=== PATIENT | female | born 1950 | race Caucasian/White ===

== ENCOUNTER → 2016-10-26 | Outpatient (CLI) | payer OTHER ==
[~2016-10-26] MED LIST: ASPI325T PO; HYDR-2768 PO; LISI-357 PO; LORTA5 PO; METF-324 PO; NORE1TAB60 PO; OMPR20CCR PO; PAXI20TA26 PO; PRED20 PO; SIMV20 PO; Z.0.COMMODE-3:1; Z.0.WALKERFRONT
[2016-10-26 14:00] LABS: ANION GAP 9 MEQ/L (5-15); AST (GOT) 31 U/L (15-37); BICARBONATE 28.1 MEQ/L (21.0-32.0); BLOOD UREA NITROGEN 18 MG/DL (7-18); CHLORIDE 102 MEQ/L (98-107); GLOMERULAR FILTRATION RATE 37 ML/MIN (>89); GLUCOSE,FASTING 112 MG/DL (74-99); HDL CHOLESTEROL 67.3 MG/DL (40.0-60.0); LDL CHOLESTEROL 100 MG/DL (0-99); POTASSIUM 3.7 MEQ/L (3.5-5.1); SODIUM (NA) 139 MEQ/L (136-145)
[2016-10-26 14:23] LABS: HEMOGLOBIN A1a 1.3 %; HEMOGLOBIN A1b 2.3 %; HEMOGLOBIN Ao 82.4 %; HEMOGLOBIN LA1C 2.4 %; HEMOGLOBIN P3 4.2 %
== END ==
LOC: CLAB 12:54
PROVIDERS: ATTEND Family Medicine
DX: N28.9 Disorder of kidney and ureter, unspecified (principal); I10 Essential (primary) hypertension; E78.5 Hyperlipidemia, unspecified; E10.9 Type 1 diabetes mellitus without complications
CPT/HCPCS: 36415; 80048; 80061; 82607; 82746; 83036; 84450

== ENCOUNTER → 2017-02-01 | Outpatient (CLI) | payer OTHER ==
[2017-02-01 13:12] LABS: MICRO ALBUMIN RANDOM URINE RAW 8.6 MG/L (0.0-30.0)
[2017-02-01 13:32] LABS: ANION GAP 10 MEQ/L (5-15); BICARBONATE 27.1 MEQ/L (21.0-32.0); BLOOD UREA NITROGEN 14 MG/DL (7-18); CHLORIDE 102 MEQ/L (98-107); GLOMERULAR FILTRATION RATE 44 ML/MIN (>89); GLUCOSE,FASTING 111 MG/DL (74-99); POTASSIUM 3.6 MEQ/L (3.5-5.1); SODIUM (NA) 139 MEQ/L (136-145)
[2017-02-01 13:59] LABS: HDL CHOLESTEROL 63.1 MG/DL (40.0-60.0); LDL CHOLESTEROL 101 MG/DL (0-99)
[2017-02-01 16:20] LABS: HEMOGLOBIN A1a 1.1 %; HEMOGLOBIN Ao 83.1 %; HEMOGLOBIN LA1C 2.3 %; HEMOGLOBIN P3 4.1 %
== END ==
LOC: CLAB 12:24
PROVIDERS: ATTEND Family Medicine
DX: N28.9 Disorder of kidney and ureter, unspecified (principal); I10 Essential (primary) hypertension; E11.9 Type 2 diabetes mellitus without complications; E53.8 Deficiency of other specified B group vitamins
CPT/HCPCS: 36415; 80048; 80061; 82043; 82607; 82746; 83036

== ENCOUNTER → 2017-06-07 | Outpatient (CLI) | payer OTHER ==
[2017-06-07 11:44] LABS: AUTOMATED NEUTROPHIL # 4.1 TH/MM3 (1.8-7.7); BASOPHIL % 0.5 % (0.0-2.0); EOSINOPHIL # 0.2 TH/MM3 (0-0.4); EOSINOPHIL % 2.4 % (0.0-4.0); HEMATOCRIT 37.1 % (35.0-46.0); HEMO FLAGS DIFF FINAL; LYMPH % 30.6 % (9.0-44.0); LYMPHOCYTE # 2.1 TH/MM3 (1.0-4.8); MEAN CELL VOLUME 80.2 FL (80.0-100.0); MEAN CORPUSCULAR HEMOGLOBIN 26.2 PG (27.0-34.0); MEAN CORPUSCULAR HGB CONC 32.7 % (32.0-36.0); MONO % 7.7 % (0.0-8.0); NEUT % 58.8 % (16.0-70.0); PLATELET COUNT 279 TH/MM3 (150-450); RED BLOOD COUNT 4.62 MIL/MM3 (4.00-5.30)
[2017-06-07 12:14] LABS: ANION GAP 10 MEQ/L (5-15); AST (GOT) 26 U/L (15-37); BICARBONATE 26.8 MEQ/L (21.0-32.0); BLOOD UREA NITROGEN 18 MG/DL (7-18); CHLORIDE 101 MEQ/L (98-107); GLOMERULAR FILTRATION RATE 46 ML/MIN (>89); GLUCOSE,FASTING 106 MG/DL (74-99); POTASSIUM 3.4 MEQ/L (3.5-5.1); SODIUM (NA) 138 MEQ/L (136-145)
[2017-06-07 12:15] LABS: ALT (GPT) 29 U/L (10-53)
[2017-06-07 12:41] LABS: ALKALINE PHOSPHATASE 38 U/L (45-117); TOTAL BILIRUBIN ADULT 0.3 MG/DL (0.2-1.0)
== END ==
LOC: CLAB 10:49
PROVIDERS: ATTEND Family Medicine
DX: E78.5 Hyperlipidemia, unspecified (principal); I12.9 Hypertensive chronic kidney disease with stage 1 through stage 4 chronic kidney disease, or unspecified chronic kidney disease; N18.3 Chronic kidney disease, stage 3 (moderate); E11.22 Type 2 diabetes mellitus with diabetic chronic kidney disease; E53.8 Deficiency of other specified B group vitamins
CPT/HCPCS: 36415; 80053; 82607; 82746; 84443; 85025

== ENCOUNTER → 2017-09-20 | Outpatient (CLI) | payer OTHER ==
[2017-09-20 13:10] LABS: AST (GOT) 20 U/L (15-37); BICARBONATE 28.8 MEQ/L (21.0-32.0); BLOOD UREA NITROGEN 17 MG/DL (7-18); CHLORIDE 102 MEQ/L (98-107); CHOLESTEROL 204 MG/DL (120-200); CREATININE 1.22 MG/DL (0.50-1.00); GLOMERULAR FILTRATION RATE 44 ML/MIN (>89); GLUCOSE,FASTING 142 MG/DL (74-99); SODIUM (NA) 137 MEQ/L (136-145); TRIGLYCERIDES 167 MG/DL (42-150)
[2017-09-20 13:35] LABS: CHOLESTEROL/ HDL RATIO 3.29 RATIO; HDL CHOLESTEROL 61.9 MG/DL (40.0-60.0); LDL CHOLESTEROL 109 MG/DL (0-99)
[2017-09-20 13:37] LABS: FOLATE GREATER THAN 20.0 NG/ML (3.1-17.5)
[2017-09-20 16:42] LABS: HEMOGLOBIN A1C 7.6 % (4.3-6.0)
== END ==
LOC: ELAB 10:44
PROVIDERS: ATTEND Family Medicine
DX: E78.5 Hyperlipidemia, unspecified (principal); N18.3 Chronic kidney disease, stage 3 (moderate); E11.22 Type 2 diabetes mellitus with diabetic chronic kidney disease; E53.8 Deficiency of other specified B group vitamins
CPT/HCPCS: 36415; 80048; 80061; 82607; 82746; 83036; 84450

== ENCOUNTER → 2017-12-25 | Outpatient (CLI) | payer OTHER ==
[~2017-12-25] MED LIST changes: -ASPI325T PO; +BIRTH CONTROL PO; +CYCL10TA PO; +DIABETES MED PO; +GLIP5TAB8 PO; -HYDR-2768 PO; -LISI-357 PO; -LORTA5 PO; +LOSA25TA PO; -METF-324 PO; -NORE1TAB60 PO; +OMEP20TA93 PO; -OMPR20CCR PO; -PAXI20TA26 PO; -PRED20 PO; +SACC1CAP3 PO; -SIMV20 PO; +SIMV20TA PO; +TORS5TAB2 PO; +VITA250T5 PO; -Z.0.COMMODE-3:1; -Z.0.WALKERFRONT
[2017-12-25 12:04] LABS: AUTOMATED NEUTROPHIL # 4.8 TH/MM3 (1.8-7.7); BASOPHIL % 0.4 % (0.0-2.0); EOSINOPHIL # 0.1 TH/MM3 (0-0.4); EOSINOPHIL % 1.9 % (0.0-4.0); HEMATOCRIT 35.9 % (35.0-46.0); HEMOGLOBIN 11.6 GM/DL (11.6-15.3); LYMPH % 26.9 % (9.0-44.0); LYMPHOCYTE # 2.1 TH/MM3 (1.0-4.8); MEAN CELL VOLUME 80.7 FL (80.0-100.0); MEAN CORPUSCULAR HEMOGLOBIN 26.2 PG (27.0-34.0); MEAN CORPUSCULAR HGB CONC 32.4 % (32.0-36.0); MEAN PLATELET VOLUME 9.3 FL (7.0-11.0); MONO % 9.5 % (0.0-8.0); MONOCYTE # 0.7 TH/MM3 (0-0.9); NEUT % 61.3 % (16.0-70.0); PLATELET COUNT 283 TH/MM3 (150-450); RED BLOOD COUNT 4.45 MIL/MM3 (4.00-5.30); RED CELL DISTRIBUTION WIDTH 16.4 % (11.6-17.2); WHITE BLOOD COUNT 7.8 TH/MM3 (4.0-11.0)
[2017-12-25 12:11] LABS: ALBUMIN 3.6 GM/DL (3.4-5.0); ALT (GPT) 28 U/L (10-53); AST (GOT) 25 U/L (15-37); BICARBONATE 28.2 MEQ/L (21.0-32.0); BLOOD UREA NITROGEN 17 MG/DL (7-18); CALCIUM 9.3 MG/DL (8.5-10.1); CHLORIDE 103 MEQ/L (98-107); CHOLESTEROL 173 MG/DL (120-200); CREATININE 1.16 MG/DL (0.50-1.00); GLOMERULAR FILTRATION RATE 47 ML/MIN (>89); GLUCOSE,FASTING 125 MG/DL (74-99); SODIUM (NA) 140 MEQ/L (136-145)
[2017-12-25 12:36] LABS: ALKALINE PHOSPHATASE 34 U/L (45-117); CHOLESTEROL/ HDL RATIO 3.17 RATIO; HDL CHOLESTEROL 54.5 MG/DL (40.0-60.0); LDL CHOLESTEROL 92 MG/DL (0-99); TOTAL BILIRUBIN ADULT 0.3 MG/DL (0.2-1.0); TOTAL PROTEIN 7.6 GM/DL (6.4-8.2); TRIGLYCERIDES 133 MG/DL (42-150)
[2017-12-25 12:47] LABS: FOLATE GREATER THAN 20.0 NG/ML (3.1-17.5)
[2017-12-25 22:46] LABS: HEMOGLOBIN A1C 7.5 % (4.3-6.0)
== END ==
LOC: ELAB 10:57
DX: I12.9 Hypertensive chronic kidney disease with stage 1 through stage 4 chronic kidney disease, or unspecified chronic kidney disease (principal); E11.22 Type 2 diabetes mellitus with diabetic chronic kidney disease; N18.3 Chronic kidney disease, stage 3 (moderate); E78.5 Hyperlipidemia, unspecified; E53.8 Deficiency of other specified B group vitamins
CPT/HCPCS: 36415; 80053; 80061; 82607; 82746; 83036; 84443; 85025

== ENCOUNTER 2018-01-01 13:55 | Emergency (ER) | payer OTHER ==
[~2018-01-01] VITALS: Ht 154.9 cm; Wt 84.0 kg
[2018-01-01 14:28] VITALS: BP 130/63; PULSE 75; RESP 16; TEMP 98.7; O2SAT 100
[2018-01-01] MEDS ORDERED: CYCL10TA PO (15:11)
--- NOTE | 2018-01-01 15:13 | PD ---
HPI Chief Complaint: Back/ Neck Pain or Injury Time Seen by Provider: 14:52 Travel History International Travel<30 days: No Contact w/Intl Traveler<30days: No Traveled to known affect area: No History of Present Illness HPI 67-year-old female presents the ED for evaluation of aching low back pain. Onset 1 week ago after the patient was moving some boxes at work. She describes the pain as constant, worsened by certain motions. No alleviating factors reported. Denies saddle anesthesia or incontinence. She denies previous injury to the area, no radiation of the pain, numbness, tingling, weakness, limitations to range of motion of the extremities, urinary symptoms, previous injury to the area. She treated at home with alternating heat and ice with no improvement of symptoms. PFSH Past Medical History Depression: Yes Cancer: No Cardiovascular Problems: Yes (htn; high cholesterol) High Cholesterol: Yes Diabetes: Yes (dm2) Diminished Hearing: No Endocrine: Yes Gastrointestinal Disorders: Yes (gerd) GERD: Yes Genitourinary: No Hepatitis: No Hiatal Hernia: No Hypertension: Yes Immune Disorder: No Musculoskeletal: Yes (hip pain) Neurologic: No Psychiatric: Yes (depression) Reproductive: No Respiratory: No Thyroid Disease: No Tubal Ligation: Yes Past Surgical History AICD: No Body Medical Devices: screws and plate l clavical Section: Yes Gynecologic Surgery: Yes (tubal ligation) Joint Replacement: Yes (RIGHT HIP) Pacemaker: No Other Surgery: Yes Social History Alcohol Use: Yes (daily 2 glasses of wine or andrew) Tobacco Use: No (former) Substance Use: No Allergies-Medications (Allergen,Severity, Reaction): Coded Allergies: latex (Unverified Allergy, Severe, Swelling, 01/01/18) lisinopril (Verified Allergy, Severe, 01/01/18) Reported Meds & Prescriptions Reported Meds & Active Scripts Active Flexeril (Cyclobenzaprine HCl) 10 Mg Tab 10 Mg PO TID Reported Losartan (Losartan Potassium) 25 Mg Tab 25 Mg PO HS Simvastatin 20 Mg Tab 20 Mg PO HS Vitamin B-12 (Cyanocobalamin) 250 Mcg Tab 250 Mcg PO DAILY Probiotic (Saccharomyces Boulardii) 250 Mg Cap 250 Mg PO DAILY Glipizide 5 Mg Tab 5 Mg PO BIDAC Take 30 minutes before a meal [ Control] 1 Tab PO EVERY OTHER DAY Omeprazole 20 Mg Tab 20 Mg PO DAILY Torsemide 5 Mg Tab 5 Mg PO DAILY Review of Systems Except as stated in HPI: all other systems reviewed are Neg Physical Exam Narrative GENERAL: Well-nourished, well-developed pleasant white female in no acute distress. SKIN: Focused skin assessment warm/dry. HEAD: Normocephalic. EYES: No scleral icterus. No injection or drainage. NECK: Supple, trachea midline. No JVD or lymphadenopathy. CARDIOVASCULAR: Regular rate and rhythm without murmurs, gallops, or rubs. RESPIRATORY: Breath sounds equal bilaterally. No accessory muscle use. GASTROINTESTINAL: Abdomen soft, non-tender, nondistended. MUSCULOSKELETAL: No cyanosis, or edema. 5/5 strength in the lower extremities. Walks with a normal gait. BACK: No obvious deformity. No CVA tenderness. No midline tenderness to palpation. Tenderness to palpation of the paraspinal musculature in the lumbar area. Data Data Last Documented VS Vital Signs Date Time Temp Pulse Resp B/P (MAP) Pulse Ox O2 Delivery O2 Flow Rate FiO2 01/01/18 14:28 98.7 75 16 130/63 (85) 100 Orders Orders Ketorolac Inj (Toradol Inj) (01/01/18 15:15) Ed Discharge Order (01/01/18 15:13) MDM Medical Decision Making Medical Screen Exam Complete: Yes Emergency Medical Condition: Yes Differential Diagnosis Muscular skeletal pain versus low back pain versus muscle strain versus other Narrative Course 67-year-old female presents the ED for evaluation of aching low back pain. Onset 1 week ago after the patient was moving some boxes at work. No red flag symptoms. Vitals reviewed. On exam the patient has tenderness to palpation of the paraspinal musculature in the lumbar spine, otherwise unremarkable. Patient has borderline kidney function. Will administer 30 mg Toradol IM here and prescribed a short course of muscle relaxants along with return to normal, gentle activity with intermittent periods of rest. Patient's instructed to follow with the primary care provider. We discussed reasons to return to the ED. She indicated understanding the instructions. She is stable and discharged home. Diagnosis Primary Impression: Musculoskeletal back pain Additional Impression: Low back strain Qualified Codes: S39.012A - Strain of muscle, fascia and tendon of lower back , initial encounter Referrals: Primary Care Physician Additional Instructions: Rest, hydrate. Short periods of rest mixed in with periods of normal, gentle activity as best for back pain. Warm or cold compresses applied 10-15 minutes per session a few times a day may also help to reduce her symptoms. Take muscle relaxants as prescribed. Do not drive while taking muscle relaxants as they may make you drowsy. Alternately you may take 1 dose of muscle relaxant before bedtime. Follow-up with your primary care provider. Return to the ED for worsening symptoms or any urgent or emergent medical condition. Med/Other Pt SpecificInfo: Prescription(s) given Scripts Cyclobenzaprine (Flexeril) 10 Mg Tab 10 MG PO TID for Muscle Spasm, #15 TAB 0 Refills Prov: Barby Mckinnon DO 01/01/18 Disposition: 01 DISCHARGE HOME Condition: Stable Katelynn Kenney January 01, 2018 15:13
[2018-01-01] MEDS ORDERED: KETOROLAC TROMETHAMINE 60 MG/2 ML (IM) VIAL IM ONE (15:15)
== END 2018-01-01 15:39 | disposition home or self-care (01) ==
LOC: NEPK 13:55
DX: S39.012A Strain of muscle, fascia and tendon of lower back, initial encounter (principal); E11.9 Type 2 diabetes mellitus without complications; E78.00 Pure hypercholesterolemia, unspecified; I10 Essential (primary) hypertension; K21.9 Gastro-esophageal reflux disease without esophagitis; Z79.84 Long term (current) use of oral hypoglycemic drugs; Z87.891 Personal history of nicotine dependence
CPT/HCPCS: 96372; 99283; J1885